=== PATIENT | male | born 1985 | race African-American/Black ===

== ENCOUNTER → 2022-02-21 | Day surgery (SDC) | payer BC ==
[~2022-02-21] MED LIST: ACETAMINOPHEN-1 EAC4 PO; BUPIVACAINE HC 0.75% PF 10ML VIAL INJ ONE; DEXAMETHASONE SOD PHOS INJ 4 MG/ML SDV ONE; FENTANYL CITRATE/PF 100MCG/2 ML INJ ONE; KETOROLAC TROMETHAMINE 30 MG/ML VIAL ONE; LIDOCAINE HCL 2% LOCAL INJ 5 ML SDV VIAL INJ ONE; MIDAZOLAM HCL 2 MG/2 ML VIAL ONE; MUPIROCIN 2% OINT 22 GM TUBE ONE; ONDANSETRON HCL INJ 2MG/ML 2ML 2 MG/ML VIAL ONE; POVIDONE IODINE 0.05% 0.05 % ML PO ONE; PROPOFOL IV EMULSION 10 MG/ML 20 ML VIAL ONE; ROCURONIUM BROMIDE 10 MG/ML 5ML VIAL IV ONE; SEVOFLURANE INHAL SOLN 250 ML PEN BTL ONE
[2022-02-21 10:10] VITALS: BP 132/84
== END | disposition home or self-care (01) ==
LOC: OR 07:37
PROVIDERS: ATTEND Plastic Surgery
DX: M79.9 Soft tissue disorder, unspecified (principal); H91.90 Unspecified hearing loss, unspecified ear; E66.9 Obesity, unspecified; Z20.822 Contact with and (suspected) exposure to COVID-19; Z68.30 Body mass index [BMI] 30.0-30.9, adult; Z86.16 Personal history of COVID-19
CPT/HCPCS: 21931; 36415; 88304; C1713; J0690; J1100; J1885; J2001; J2250; J2405; J2704; J3010; U0002